=== PATIENT | male | born 1980 | race Caucasian/White ===

== ENCOUNTER 2017-01-09 14:03 | Emergency (ER) | payer OTHER ==
[~2017-01-09] VITALS: Ht 195.6 cm; Wt 147.5 kg
[~2017-01-09 14:03] MED LIST: ABILIFY10 MG PO; AMOXICILLIN500 MG PO; ANUSOL HC,ANUCO25 MG PR; AUGMENTIN875 MG PO; AZITHROMYCIN500 M1 PO; CLINDAMYCIN HC300 MG PO; FLOXIN OTIC SOLN5 ML BOTH EARS; GABAPENTIN300 MG; GABAPENTIN300 MG PO; LIPOZENE PO; LORAZEPAM1 MG PO; LORTAB 5-325 M1 EACH PO; LYRICA150 MG PO; MOTRIN800 MG PO; OMEPRAZOLE20 MG PO; PAROXETINE HCL20 MG PO; PERCOCET 5/31 TABLET PO; VIBRAMYCIN100 MG PO; VICODIN,LORT1 TABLET PO; ZYRTEC10 M1 PO
[2017-01-09] MEDS ORDERED: PERCOCET 5/31 TABLET PO (16:38)
[2017-01-09 16:50] VITALS: BP 114/67
== END 2017-01-09 16:50 | disposition home or self-care (01) ==
LOC: EME 14:03
PROC: 3E0234Z Introduction of Serum, Toxoid and Vaccine into Muscle, Percutaneous Approach (ICD-10-PCS; principal; 2017-01-09)
DX: S91.342A Puncture wound with foreign body, left foot, initial encounter (principal); S92.522A Displaced fracture of middle phalanx of left lesser toe(s), initial encounter for closed fracture; W27.1XXA Contact with garden tool, initial encounter; Z23 Encounter for immunization; F17.200 Nicotine dependence, unspecified, uncomplicated
CPT/HCPCS: 73630; 99281; 99285; J1170; J1956; J2405; J3010

== ENCOUNTER 2017-08-06 19:50 | Emergency (ER) | payer OTHER ==
[~2017-08-06] VITALS: Ht 198.1 cm; Wt 142.1 kg
[2017-08-06] MEDS ORDERED: PAXIL30 MG PO (21:24)
[2017-08-06] MEDS ORDERED: GABAPENTIN400 MG PO (21:27)
[2017-08-06] MEDS ORDERED: XARELTO20 MG PO (22:48)
[2017-08-06] MEDS ORDERED: XARELTO15 MG PO (22:48)
[2017-08-06 23:13] VITALS: BP 129/97
== END 2017-08-06 23:14 | disposition home or self-care (01) ==
LOC: EME 19:50
DX: I82.442 Acute embolism and thrombosis of left tibial vein (principal); F17.200 Nicotine dependence, unspecified, uncomplicated
CPT/HCPCS: 80048; 85025; 93971; 99281; 99284

== ENCOUNTER 2017-08-17 13:43 | Emergency (ER) | payer OTHER ==
[~2017-08-17] VITALS: Ht 193 cm; Wt 134.0 kg
[~2017-08-17 13:43] MED LIST changes: +GABAPENTIN400 MG PO; +PAXIL30 MG PO; +XARELTO15 MG PO; +XARELTO20 MG PO
[2017-08-17 14:54] LABS: HEMATOCRIT 47.5 % (38.0-50.0); HEMOGLOBIN 16.2 G/DL (12.5-16.6); MCH 28.7 PG (29.0-34.0); MCHC 34.1 G/DL (30.0-36.0); MCV 84.1 FL (86-99); PLATELET COUNT 262 K/uL (156-360); RBC DIS.WIDTH-CV 12.5 % (11.8-14.6); RBC DIS.WIDTH-SD 38.3 % (39-53); RED BLOOD COUNT 5.65 M/uL (4.00-5.50); WHITE BLOOD COUNT 11.7 K/uL (4.1-10.2)
[2017-08-17 15:05] LABS: ALBUMIN 4.6 g/dL (3.2-4.8); CHLORIDE 107 mEq/L (99-109); POTASSIUM 4.1 mEq/L (3.7-5.4); SODIUM 138 mEq/L (136-147)
[2017-08-17 15:07] LABS: GLUCOSE 86 mg/dL (70-99)
[2017-08-17 15:08] LABS: TOTAL PROTEIN 8.2 g/dL (6.4-8.3)
[2017-08-17 15:09] LABS: TOTAL BILIRUBIN 0.6 mg/dL (0.0-1.0)
[2017-08-17 15:10] LABS: SERUM ETHYL ALCOHOL < 10 mg/dL
[2017-08-17 15:11] LABS: ALKALINE PHOSPHATASE 125 IU/L (3-129); CREATININE 1.2 mg/dL (0.6-1.3); GFR ESTIMATE (CALCULATED) > 59 mL/min/ (58.99-99999)
[2017-08-17 15:12] LABS: UREA NITROGEN (BUN) 19 mg/dL (9-23)
[2017-08-17 15:13] LABS: AST (GOT) 22 IU/L (2-34)
[2017-08-17 15:14] LABS: ALT (GPT) 36 IU/L (3-49)
[2017-08-17 16:05] LABS: AMPHETAMINE NEGATIVE (500 ng/mL); BARBITURATES NEGATIVE (200 ng/mL); BENZODIAZEPINES NEGATIVE (150 ng/mL); BUPRENORPHINE NEGATIVE (10 ng/mL); COCAINE NEGATIVE (150 ng/mL); METHADONE NEGATIVE (200 ng/mL); METHAMPHETAMINE NEGATIVE (500 ng/mL); OPIATES (MORPHINE) NEGATIVE (100 ng/mL); OXYCODONE NEGATIVE (100 ng/mL); PHENCYCLIDINE NEGATIVE (25 ng/mL); PROPOXYPHENE NEGATIVE (300 ng/mL); THC CANNABINOIDS NEGATIVE (50 ng/mL); TRICYCLIC ANTIDEPRESSANTS NEGATIVE (300 ng/mL)
[2017-08-17] MEDS ORDERED: ATIVAN1 MG PO (16:46)
[2017-08-17 17:00] VITALS: BP 128/72
== END 2017-08-17 17:00 | disposition home or self-care (01) ==
LOC: EME 13:43
PROVIDERS: Emergency Medicine
DX: F41.9 Anxiety disorder, unspecified (principal); J44.9 Chronic obstructive pulmonary disease, unspecified; E78.5 Hyperlipidemia, unspecified; G90.50 Complex regional pain syndrome I, unspecified; F32.9 Major depressive disorder, single episode, unspecified; F17.200 Nicotine dependence, unspecified, uncomplicated; Z86.718 Personal history of other venous thrombosis and embolism; Z88.6 Allergy status to analgesic agent
CPT/HCPCS: 70450; 80053; 85027; 99281; 99284; G0480

== ENCOUNTER 2018-01-31 12:34 | Emergency (ER) | payer OTHER ==
[~2018-01-31] VITALS: Ht 195.6 cm; Wt 141.6 kg
[~2018-01-31 12:34] MED LIST changes: +ATIVAN1 MG PO
[2018-01-31 14:40] LABS: HEMATOCRIT 47.9 % (38.0-50.0); HEMOGLOBIN 16.5 G/DL (12.5-16.6); MCH 28.8 PG (29.0-34.0); MCHC 34.4 G/DL (30.0-36.0); MCV 83.7 FL (86-99); PLATELET COUNT 184 K/uL (156-360); RBC DIS.WIDTH-SD 39.7 % (39-53); RED BLOOD COUNT 5.72 M/uL (4.00-5.50); WHITE BLOOD COUNT 9.7 K/uL (4.1-10.2)
[2018-01-31 14:52] LABS: CHLORIDE 105 mEq/L (99-109); POTASSIUM 4.3 mEq/L (3.7-5.4); SODIUM 138 mEq/L (136-147)
[2018-01-31 14:54] LABS: GLUCOSE 79 mg/dL (70-99)
[2018-01-31 14:58] LABS: CREATININE 1.1 mg/dL (0.6-1.3); GFR ESTIMATE (CALCULATED) > 59 mL/min/ (58.99-99999)
[2018-01-31 14:59] LABS: UREA NITROGEN (BUN) 13 mg/dL (9-23)
[2018-01-31 15:47] VITALS: BP 112/83
== END 2018-01-31 15:49 | disposition home or self-care (01) ==
LOC: EME 12:34
PROVIDERS: Nurse Practitioner Family
DX: G62.9 Polyneuropathy, unspecified (principal); M79.662 Pain in left lower leg; Z86.718 Personal history of other venous thrombosis and embolism; Z88.6 Allergy status to analgesic agent
CPT/HCPCS: 80048; 85027; 93971; 99281; 99284